=== PATIENT | female | born 1995 | race Caucasian/White ===

== ENCOUNTER → 2019-02-02 | Outpatient (CLI) | payer BC ==
--- NOTE | 2019-02-02 13:06 | REP ---
KUB ABDOMEN AND PELVIS: KUB film of abdomen and pelvis performed. Bowel gas pattern is normal. There is no obstruction. No abnormal calcifications are seen. The visualized osseous structures are unremarkable. IMPRESSION: Negative exam. Electronically Signed by Sudhakar Walls MD 02/02/2019 06:03 P
== END ==
LOC: M RAD 10:58
PROVIDERS: ATTEND Physician Assistant
DX: M54.5 Low back pain (principal)

== ENCOUNTER → 2019-02-02 | Outpatient (REF) | payer BC | LOC: M LAB REF 15:26 | PROVIDERS: ATTEND Physician Assistant | DX: R30.0 Dysuria (principal) ==

== ENCOUNTER → 2019-06-06 | Outpatient (REF) | payer BC ==
[2019-06-06 11:49] LABS: ALBUMIN 3.7 GM/DL (3.2-5.2); ALT/SGPT 16 U/L (12-78); BILIRUBIN,TOTAL 0.3 MG/DL (0.2-1.0); BLOOD UREA NITROGEN 10 MG/DL (7-18); CALCIUM LEVEL 9.1 MG/DL (8.5-10.1); CARBON DIOXIDE LEVEL 21 MEQ/L (21-32); CHLORIDE LEVEL 106 MEQ/L (98-107); CREATININE FOR GFR 0.72 MG/DL (0.55-1.30); FREE T4 1.09 NG/DL (0.76-1.46); GLOMERULAR FILTRATION RATE > 60.0 (>60); GLUCOSE, FASTING 78 MG/DL (70-100); POTASSIUM SERUM 4.2 MEQ/L (3.5-5.1); SODIUM LEVEL 139 MEQ/L (136-145); TOTAL PROTEIN 7.5 GM/DL (6.4-8.2)
== END ==
LOC: M SFHCPLAZ 08:56
PROVIDERS: ATTEND Physician Assistant
DX: Z00.00 Encounter for general adult medical examination without abnormal findings (principal)

== ENCOUNTER → 2020-04-20 | Outpatient (CLI) | payer SELFPAY | LOC: M LABSMTC 14:25 | PROVIDERS: ATTEND Pediatrics | DX: Z11.59 Encounter for screening for other viral diseases (principal) ==

== ENCOUNTER → 2021-07-14 | Outpatient (REF) | payer BC | LOC: M SFHCWAGY 13:08 | PROVIDERS: ATTEND Obstetrics & Gynecology | DX: Z01.419 Encounter for gynecological examination (general) (routine) without abnormal findings (principal); Z12.4 Encounter for screening for malignant neoplasm of cervix ==

== ENCOUNTER → 2021-09-02 | Outpatient (CLI) | payer BC ==
[2021-09-02 15:38] LABS: BASO % 0.4 % (0.0-1.0); EOS # 0.2 10^3/uL (0.0-0.5); EOS % 2.4 % (0.0-3.0); HEMATOCRIT 40.9 % (36.0-47.0); HEMOGLOBIN 13.4 g/dl (12.0-15.5); LYMPH # 2.1 10^3/uL (1.5-5.0); MEAN CORPUSCULAR HEMOGLOBIN 28.3 pg (27.0-33.0); MEAN CORPUSCULAR HGB CONC 32.8 g/dl (32.0-36.5); MEAN CORPUSCULAR VOLUME 86.5 fl (80.0-96.0); MONO # 0.4 10^3/uL (0.0-0.8); MONO % 6.1 % (2.0-8.0); NEUTROPHILS # 4.3 10^3/uL (1.5-8.5); NEUTROPHILS % 60.8 % (36.0-66.0); PLATELET COUNT, AUTOMATED 357 10^3/uL (150-450); RED BLOOD COUNT 4.73 10^6/uL (4.00-5.40); WHITE BLOOD COUNT 7.1 10^3/uL (4.0-10.0)
[2021-09-02 16:05] LABS: HEMOGLOBIN A1c 5.3 %
[2021-09-02 16:21] LABS: ALBUMIN 4.1 GM/DL (3.2-5.2); ALT/SGPT 29 U/L (12-78); BILIRUBIN,TOTAL 0.4 MG/DL (0.2-1.0); BLOOD UREA NITROGEN 14 MG/DL (7-18); CALCIUM LEVEL 10.2 MG/DL (8.5-10.1); CARBON DIOXIDE LEVEL 29 MEQ/L (21-32); CHLORIDE LEVEL 106 MEQ/L (98-107); CREATININE FOR GFR 0.72 MG/DL (0.55-1.30); FREE T4 0.77 NG/DL (0.76-1.46); GLOMERULAR FILTRATION RATE > 60.0 (>60); GLUCOSE, FASTING 84 MG/DL (70-100); POTASSIUM SERUM 4.5 MEQ/L (3.5-5.1); SODIUM LEVEL 141 MEQ/L (136-145); THYROID STIMULATING HORMONE 0.861 uIU/ML (0.358-3.740); TOTAL PROTEIN 7.6 GM/DL (6.4-8.2)
== END ==
LOC: M PLALAB 13:01
PROVIDERS: ATTEND Physician Assistant
DX: G43.109 Migraine with aura, not intractable, without status migrainosus (principal)

== ENCOUNTER → 2021-09-02 | Outpatient (CLI) | payer BC ==
[2021-09-02 16:19] LABS: HCG, SERUM QUANTITATIVE < 1.0 MIU/ML
[2021-09-02 16:24] LABS: LUTEINIZING HORMONE 11.7 mIU/mL
[2021-09-02 16:25] LABS: FOLLICLE STIMULATING HORMONE 7.6 mIU/mL
== END ==
LOC: M PLALAB 13:03
PROVIDERS: ATTEND Obstetrics & Gynecology
DX: N92.6 Irregular menstruation, unspecified (principal)

== ENCOUNTER → 2021-09-22 | Outpatient (REF) | payer BC | LOC: M SFHCPLAZ 16:51 | PROVIDERS: ATTEND Physician Assistant | DX: R05.9 Cough, unspecified (principal) ==

== ENCOUNTER → 2021-09-22 | Outpatient (CLI) | payer BC | LOC: M PLAIMG 16:11 | PROVIDERS: ATTEND Physician Assistant | DX: J20.9 Acute bronchitis, unspecified (principal) ==

== ENCOUNTER → 2022-01-27 | Outpatient (REF) | payer BC ==
[2022-01-27 13:09] LABS: BASO % 0.6 % (0.0-1.0); EOS # 0.2 10^3/uL (0.0-0.5); EOS % 3.2 % (0.0-3.0); HEMATOCRIT 43.3 % (36.0-47.0); HEMOGLOBIN 14.1 g/dl (12.0-15.5); LYMPH # 1.3 10^3/uL (1.5-5.0); MEAN CORPUSCULAR HEMOGLOBIN 29.4 pg (27.0-33.0); MEAN CORPUSCULAR HGB CONC 32.6 g/dl (32.0-36.5); MEAN CORPUSCULAR VOLUME 90.4 fl (80.0-96.0); MONO # 0.3 10^3/uL (0.0-0.8); MONO % 6.2 % (2.0-8.0); NEUTROPHILS # 3.5 10^3/uL (1.5-8.5); NEUTROPHILS % 64.8 % (36.0-66.0); PLATELET COUNT, AUTOMATED 323 10^3/uL (150-450); RED BLOOD COUNT 4.79 10^6/uL (4.00-5.40); WHITE BLOOD COUNT 5.3 10^3/uL (4.0-10.0)
[2022-01-27 13:50] LABS: ALT/SGPT 21 U/L (12-78); BILIRUBIN,TOTAL 0.5 MG/DL (0.2-1.0); BLOOD UREA NITROGEN 14 MG/DL (7-18); CALCIUM LEVEL 9.5 MG/DL (8.5-10.1); CARBON DIOXIDE LEVEL 29 MEQ/L (21-32); CHLORIDE LEVEL 103 MEQ/L (98-107); CREATININE FOR GFR 0.74 MG/DL (0.55-1.30); FERRITIN 30 NG/ML (8-252); GLOMERULAR FILTRATION RATE > 60.0 (>60); GLUCOSE, FASTING 83 MG/DL (70-100); IRON (FE) 71 UG/DL (50-170); PERCENT SATURATION 19.6 % (13.2-45.0); POTASSIUM SERUM 5.1 MEQ/L (3.5-5.1); SODIUM LEVEL 135 MEQ/L (136-145); TOTAL IRON BINDING CAPACITY 362 UG/DL (250-450); TOTAL PROTEIN 7.4 GM/DL (6.4-8.2)
[2022-01-27 14:21] LABS: VITAMIN B12 LEVEL > 2000 PG/ML (247-911)
[2022-01-28 10:08] LABS: FOLATE 4.4 ng/mL (>3.0)
== END ==
LOC: M SFHCADAM 08:26
PROVIDERS: ATTEND Physician Assistant
DX: R20.2 Paresthesia of skin (principal)

== ENCOUNTER → 2022-03-03 | Outpatient (REF) | payer BC ==
[2022-03-03 17:45] LABS: FREE T4 0.87 NG/DL (0.76-1.46); THYROID STIMULATING HORMONE 0.794 uIU/ML (0.358-3.740)
== END ==
LOC: M SFHCADAM 10:30
PROVIDERS: ATTEND Physician Assistant
DX: L65.9 Nonscarring hair loss, unspecified (principal)

== ENCOUNTER → 2023-01-04 | Outpatient (CLI) | payer BC ==
[2023-01-04 18:20] LABS: HEMATOCRIT 39.9 % (36.0-47.0); HEMOGLOBIN 13.3 g/dl (12.0-15.5); MEAN CORPUSCULAR HEMOGLOBIN 30.6 pg (27.0-33.0); MEAN CORPUSCULAR HGB CONC 33.3 g/dl (32.0-36.5); MEAN CORPUSCULAR VOLUME 91.9 fl (80.0-96.0); PLATELET COUNT, AUTOMATED 316 10^3/uL (150-450); RED BLOOD COUNT 4.34 10^6/uL (4.00-5.40); WHITE BLOOD COUNT 7.8 10^3/uL (4.0-10.0)
[2023-01-04 19:27] LABS: HIV 1&2 SCREEN NEGATIVE (NEGATIVE)
[2023-01-04 19:35] LABS: HEPATITIS C VIRUS ABY INDEX 0.12 INDEX (<0.8)
[2023-01-04 20:40] LABS: GC DNA AMPLIFICATION NEGATIVE (NEGATIVE)
== END ==
LOC: M PLALAB 16:17
PROVIDERS: ATTEND Obstetrics & Gynecology
DX: O36.80X0 Pregnancy with inconclusive fetal viability, not applicable or unspecified (principal); Z3A.00 Weeks of gestation of pregnancy not specified

== ENCOUNTER → 2023-01-05 | Outpatient (CLI) | payer BC | LOC: M PLALAB 09:54 | PROVIDERS: ATTEND Advanced Practice Midwife | DX: O20.9 Hemorrhage in early pregnancy, unspecified (principal); Z3A.00 Weeks of gestation of pregnancy not specified ==

== ENCOUNTER → 2023-01-08 | Outpatient (CLI) | payer BC | LOC: M PLALAB 16:07 | PROVIDERS: ATTEND Advanced Practice Midwife | DX: O20.9 Hemorrhage in early pregnancy, unspecified (principal); Z3A.00 Weeks of gestation of pregnancy not specified ==

== ENCOUNTER → 2023-02-02 | Outpatient (CLI) | payer BC | LOC: M PLALAB 10:34 | PROVIDERS: ATTEND Obstetrics & Gynecology | DX: Z34.80 Encounter for supervision of other normal pregnancy, unspecified trimester (principal) ==

== ENCOUNTER → 2023-04-18 | Outpatient (CLI) | payer BC | LOC: M WHC 10:19 | PROVIDERS: ATTEND Obstetrics & Gynecology | DX: Z34.80 Encounter for supervision of other normal pregnancy, unspecified trimester (principal) ==

== ENCOUNTER → 2023-06-01 | Outpatient (CLI) | payer BC | LOC: M WHC 07:46 | PROVIDERS: ATTEND Advanced Practice Midwife | DX: Z34.02 Encounter for supervision of normal first pregnancy, second trimester (principal) ==

== ENCOUNTER → 2023-06-15 | Outpatient (CLI) | payer BC ==
[2023-06-15 11:55] LABS: HEMATOCRIT 35.1 % (36.0-47.0); MEAN CORPUSCULAR HEMOGLOBIN 32.2 pg (27.0-33.0); MEAN CORPUSCULAR HGB CONC 34.2 g/dl (32.0-36.5); MEAN CORPUSCULAR VOLUME 94.1 fl (80.0-96.0); PLATELET COUNT, AUTOMATED 273 10^3/uL (150-450); RED BLOOD COUNT 3.73 10^6/uL (4.00-5.40); WHITE BLOOD COUNT 8.9 10^3/uL (4.0-10.0)
== END ==
LOC: M PLALAB 07:06
PROVIDERS: ATTEND Advanced Practice Midwife
DX: Z34.02 Encounter for supervision of normal first pregnancy, second trimester (principal)

== ENCOUNTER → 2023-07-24 | Outpatient (CLI) | payer BC ==
[2023-07-24 18:30] LABS: HEMOGLOBIN 11.9 g/dl (12.0-15.5); MEAN CORPUSCULAR HEMOGLOBIN 31.4 pg (27.0-33.0); MEAN CORPUSCULAR VOLUME 92.3 fl (80.0-96.0); PLATELET COUNT, AUTOMATED 298 10^3/uL (150-450); RED BLOOD COUNT 3.79 10^6/uL (4.00-5.40); WHITE BLOOD COUNT 9.5 10^3/uL (4.0-10.0)
== END ==
LOC: M PLALAB 16:28
PROVIDERS: ATTEND Advanced Practice Midwife
DX: L29.9 Pruritus, unspecified (principal); Z34.82 Encounter for supervision of other normal pregnancy, second trimester

== ENCOUNTER → 2023-08-01 | Outpatient (CLI) | payer BC ==
[2023-08-01 18:16] LABS: HEMATOCRIT 34.8 % (36.0-47.0); HEMOGLOBIN 11.9 g/dl (12.0-15.5); MEAN CORPUSCULAR HEMOGLOBIN 31.2 pg (27.0-33.0); MEAN CORPUSCULAR HGB CONC 34.2 g/dl (32.0-36.5); MEAN CORPUSCULAR VOLUME 91.3 fl (80.0-96.0); PLATELET COUNT, AUTOMATED 276 10^3/uL (150-450); RED BLOOD COUNT 3.81 10^6/uL (4.00-5.40); WHITE BLOOD COUNT 9.8 10^3/uL (4.0-10.0)
[2023-08-01 18:48] LABS: TOTAL PROTEIN,RANDOM URINE 16.7 MG/DL (0.0-14.0)
[2023-08-01 18:53] LABS: CREATININE,RANDOM URINE 74.6 MG/DL
[2023-08-01 18:58] LABS: URIC ACID 4.3 MG/DL (3.1-7.8)
[2023-08-01 19:00] LABS: LDH LACTATE DEHYDROGENASE 173 U/L (120-246)
[2023-08-01 19:01] LABS: ALT/SGPT < 9 U/L (7.0-40); AST/SGOT 8 U/L (<34); BILIRUBIN,TOTAL 0.4 MG/DL (0.3-1.2); GLOMERULAR FILTRATION RATE > 60.0 (>60)
== END ==
LOC: M PLALAB 15:56
PROVIDERS: ATTEND Obstetrics & Gynecology
DX: O16.9 Unspecified maternal hypertension, unspecified trimester (principal)

== ENCOUNTER 2023-08-04 21:23 | Observation (INO) | payer BC ==
[~2023-08-04] VITALS: Ht 154.9 cm; Wt 87.1 kg
[2023-08-04] MEDS ORDERED: HOME MED LIST COMPLETE! XX SCH (21:40)
[2023-08-04] MEDS ORDERED: PRENTAB9 PO (21:51)
[2023-08-04] MEDS ORDERED: ACET500P3 PO (21:53)
[2023-08-04] MEDS ORDERED: PREP1SUP PR (21:53)
[2023-08-04] MEDS ORDERED: UNIS25TA3 PO (21:53)
[2023-08-04] MEDS ORDERED: LEVOTAB10 PO (21:53)
[2023-08-04 22:04] VITALS: BP 134/84
[2023-08-04 23:03] LABS: HEMATOCRIT 34.6 % (36.0-47.0); HEMOGLOBIN 12.3 g/dl (12.0-15.5); MEAN CORPUSCULAR HEMOGLOBIN 31.9 pg (27.0-33.0); MEAN CORPUSCULAR HGB CONC 35.5 g/dl (32.0-36.5); MEAN CORPUSCULAR VOLUME 89.9 fl (80.0-96.0); PLATELET COUNT, AUTOMATED 307 10^3/uL (150-450); RED BLOOD COUNT 3.85 10^6/uL (4.00-5.40); WHITE BLOOD COUNT 12.5 10^3/uL (4.0-10.0)
[2023-08-04] MEDS: LR 1,000 ML IV ONE (23:23)
[2023-08-04] MEDS: ACETAMINOPHEN 500 MG TAB PO PRN (23:23)
[2023-08-05 01:10] VITALS: BP 131/86
[2023-08-05 02:00] VITALS: BP 116/62
[2023-08-05] MEDS: PERCOCET 5MG/325MG TAB PO PRN (02:16)
[2023-08-05] MEDS: LR 1,000 ML IV SCH (03:38)
[2023-08-05] MEDS: TAMSULOSIN 0.4 MG CAP PO SCH (03:39)
[2023-08-05 05:37] VITALS: BP 139/86
[2023-08-05 09:14] VITALS: BP 135/98
[2023-08-05] MEDS ORDERED: FLOM0.4C39 PO (09:24)
== END 2023-08-05 09:35 | disposition home or self-care (01) ==
LOC: M LDO 21:23 → M LDI 21:24 → UNDOADMOB 21:24 → M LDI 08-05 09:35 → UNDODISOB 08-05 09:35
PROVIDERS: ADMIT Obstetrics & Gynecology; ATTEND Obstetrics & Gynecology
DX: O26.833 Pregnancy related renal disease, third trimester (principal); N20.0 Calculus of kidney; O99.353 Diseases of the nervous system complicating pregnancy, third trimester; G43.909 Migraine, unspecified, not intractable, without status migrainosus; Z3A.35 35 weeks gestation of pregnancy; Z82.49 Family history of ischemic heart disease and other diseases of the circulatory system; Z82.0 Family history of epilepsy and other diseases of the nervous system; Z80.0 Family history of malignant neoplasm of digestive organs
CPT/HCPCS: 59025; 76775; 81001; 85027; 87086; 96360; 96361; G0463

== ENCOUNTER → 2023-08-07 | Outpatient (REF) | payer BC ==
[~2023-08-07] MED LIST: ACET500P3 PO; FLOM0.4C39 PO; LEVOTAB10 PO; PRENTAB9 PO; PREP1SUP PR; UNIS25TA3 PO
== END ==
LOC: M SFHCWAGY 17:38
PROVIDERS: ATTEND Obstetrics & Gynecology
DX: O13.3 Gestational [pregnancy-induced] hypertension without significant proteinuria, third trimester (principal)

== ENCOUNTER 2023-08-15 04:50 | Inpatient (IN) | payer BC ==
[2023-08-15] VITALS (10 sets, daily range): BP systolic 110–139; BP diastolic 60–92; TEMP 98.1; O2SAT 96–100
[~2023-08-15] VITALS: Ht 154.9 cm; Wt 87.5 kg
[2023-08-15] MEDS ORDERED: OXYTOCIN DRIP 30 UNITS in IV 1 EA IV PRN (05:45)
[2023-08-15] MEDS ORDERED: TRANEXAMIC ACID INJection 1,000 MG in NS 100 ML IV PRN (05:45)
[2023-08-15 06:07] LABS: HEMATOCRIT 32.3 % (36.0-47.0); HEMOGLOBIN 11.3 g/dl (12.0-15.5); MEAN CORPUSCULAR HEMOGLOBIN 31.5 pg (27.0-33.0); PLATELET COUNT, AUTOMATED 309 10^3/uL (150-450); RED BLOOD COUNT 3.59 10^6/uL (4.00-5.40); WHITE BLOOD COUNT 9.1 10^3/uL (4.0-10.0)
[2023-08-15] MEDS: BICITRA 30ML SOLN UDC PO ONE (06:21)
[2023-08-15] MEDS: LACTATED RINGER'S 1000 ML IV STA (06:21)
[2023-08-15] MEDS: ceFAZolin SOD 2 GM in IV 1 EA IV ONE (06:21)
[2023-08-15] MEDS: LR 1,000 ML IV SCH ×2 (06:22→08:05)
[2023-08-15 06:25] LABS: URIC ACID 4.3 MG/DL (3.1-7.8)
[2023-08-15 06:27] LABS: ALT/SGPT 10 U/L (7.0-40); AST/SGOT < 8 U/L (<34); BILIRUBIN,TOTAL 0.5 MG/DL (0.3-1.2); CREATININE FOR GFR 0.46 MG/DL (0.55-1.30); CREATININE,RANDOM URINE 119.5 MG/DL; GLOMERULAR FILTRATION RATE > 60.0 (>60); LDH LACTATE DEHYDROGENASE 165 U/L (120-246)
[2023-08-15] MEDS ORDERED: MORPHINE PRES-FREE INJ 10 MG/10 ML VIAL As Ordered ONE (06:47)
[2023-08-15] MEDS ORDERED: KETOROLAC 60MG 2ML VIAL As Ordered ONE (06:47)
[2023-08-15] MEDS ORDERED: ACETAMINOPHEN 1000MG 100ML IV BAG As Ordered ONE (06:47)
[2023-08-15] MEDS ORDERED: ONDANSETRON 4MG 2ML VIAL As Ordered ONE (06:47)
[2023-08-15] MEDS ORDERED: OXYTOCIN 30UNITS IN 0.9% NaCl 500ML IV BAG As Ordered ONE (06:47)
[2023-08-15] MEDS ORDERED: PHENYLephrine 500MCG 5ML (100MCG/ML) SYRINGE As Ordered ONE (07:31)
[2023-08-15] MEDS ORDERED: fentaNYL 100 MCG/2 ML INJECTION As Ordered ONE (07:39)
[2023-08-15] MEDS ORDERED: SIMETHICONE 80MG CHEW TAB PO PRN (08:05)
[2023-08-15] MEDS ORDERED: ONDANSETRON 4MG 2ML VIAL IV PRN (08:05)
[2023-08-15] MEDS ORDERED: PERCOCET 5MG/325MG TAB PO PRN ×2 (08:05)
[2023-08-15] MEDS ORDERED: CALCIUM CARBONATE 500 MG CHEW U/D PO PRN (08:05)
[2023-08-15] MEDS ORDERED: RHOGAM 300MCG (1500IU) INJ IM SCH (08:05)
[2023-08-15] MEDS ORDERED: MOM 30ML SUSPENSION UDC PO PRN (08:05)
[2023-08-15] MEDS: OXYTOCIN DRIP 30 UNITS in IV 1 EA IV SCH (08:19)
[2023-08-15] MEDS: FERROUS SULFATE 325MG TAB PO SCH (10:24)
[2023-08-15] MEDS: PRENATAL VITAMINS CHEWABLE TABLET PO SCH (10:25)
[2023-08-15] MEDS: DOCUSATE SODIUM 100MG CAPSULE PO SCH (10:25)
[2023-08-15] MEDS: KETOROLAC 30 MG/ML 1ML VIAL IV SCH (13:48)
[2023-08-15] MEDS: diphenhydrAMINE 50MG/ML VIAL IV PRN (20:09)
[2023-08-16 02:00] VITALS: BP 109/65; O2SAT 100
[2023-08-16 05:54] VITALS: BP 114/66; O2SAT 100
[2023-08-16 07:29] LABS: HEMATOCRIT 26.7 % (36.0-47.0); MEAN CORPUSCULAR HEMOGLOBIN 31.4 pg (27.0-33.0); MEAN CORPUSCULAR HGB CONC 34.1 g/dl (32.0-36.5); MEAN CORPUSCULAR VOLUME 92.1 fl (80.0-96.0); PLATELET COUNT, AUTOMATED 261 10^3/uL (150-450); WHITE BLOOD COUNT 9.5 10^3/uL (4.0-10.0)
[2023-08-16 07:30] LABS: HEMOGLOBIN 9.1 g/dl (12.0-15.5)
[2023-08-16 09:56] VITALS: BP 121/69; O2SAT 99
[2023-08-16] MEDS: IBUPROFEN 800 MG TAB PO SCH (11:33)
[2023-08-16 14:00] VITALS: BP 126/71; O2SAT 98
[2023-08-16 17:37] VITALS: BP 133/71; O2SAT 100
[2023-08-16 22:00] VITALS: BP 113/55; O2SAT 99
[2023-08-17 02:00] VITALS: BP 135/82; O2SAT 98
[2023-08-17 06:00] VITALS: BP 122/65; O2SAT 99
[2023-08-17] MEDS ORDERED: COLA100C5 PO (08:01)
[2023-08-17] MEDS ORDERED: IBUP80TA PO (08:01)
[2023-08-17] MEDS: MEASLES,MUMPS,RUBELLA VACCINE INJ (MMR-II) SC.IMMUN ONE (08:55)
== END 2023-08-17 13:00 | disposition home or self-care (01) | DRG 540 ==
LOC: M LDO 04:50 → M LDI 05:39 → M OBS 09:28
PROVIDERS: ADMIT Obstetrics & Gynecology; ATTEND Obstetrics & Gynecology
PROC: 10D00Z1 Extraction of Products of Conception, Low, Open Approach (ICD-10-PCS; principal; 2023-08-15 06:04)
DX: O32.1XX0 Maternal care for breech presentation, not applicable or unspecified (principal); Z37.0 Single live birth; Z3A.37 37 weeks gestation of pregnancy; O13.4 Gestational [pregnancy-induced] hypertension without significant proteinuria, complicating childbirth

== ENCOUNTER 2024-12-10 07:20 | Emergency (ER) | payer BC ==
[~2024-12-10] VITALS: Ht 157.5 cm; Wt 77.1 kg
[~2024-12-10 07:20] MED LIST changes: +COLA100C5 PO; -FLOM0.4C39 PO; +IBUP80TA PO; +TAMS-18 PO
[2024-12-10] MEDS: diphenhydrAMINE 50 MG/ML VIAL IV ONE (08:02)
[2024-12-10] MEDS: FAMOTIDINE IV BAG 20 MG in IV 1 EA IV ONE (08:02)
[2024-12-10] MEDS: NS 500 ML IV ONE (08:02)
[2024-12-10] MEDS: diphenhydrAMINE 50 MG/ML VIAL IV STA (10:11)
[2024-12-10] MEDS ORDERED: PRED50TA57 PO (11:34)
[2024-12-10] MEDS ORDERED: PEPC1TAB5 PO (11:35)
[2024-12-10] MEDS ORDERED: BENA25CA4 PO (11:36)
[2024-12-10 11:54] VITALS: BP 113/63; TEMP 99; O2SAT 97
== END 2024-12-10 11:50 | disposition home or self-care (01) ==
LOC: M ED 07:20
DX: L50.9 Urticaria, unspecified (principal); Z79.1 Long term (current) use of non-steroidal anti-inflammatories (NSAID); Z79.52 Long term (current) use of systemic steroids; Z79.899 Other long term (current) drug therapy; Z79.810 Long term (current) use of selective estrogen receptor modulators (SERMs)
CPT/HCPCS: 93041; 96365; 96366; 96375; 96376; 99285; J1200; J1308; J2919

== ENCOUNTER → 2024-12-18 | Outpatient (REF) | payer BC ==
[~2024-12-18] MED LIST changes: +BENA25CA4 PO; +PEPC1TAB5 PO; +PRED50TA57 PO
[2024-12-18 13:37] LABS: BASO # 0.0 10^3/uL (0.0-0.2); BASO % 0.3 % (0.0-1.0); EOS # 0.2 10^3/uL (0.0-0.5); EOS % 3.6 % (0.0-3.0); LYMPH # 1.7 10^3/uL (1.5-5.0); LYMPH % 29.0 % (24.0-44.0); MONO # 0.3 10^3/uL (0.0-0.8); MONO % 5.9 % (2.0-8.0); NEUTROPHILS # 3.5 10^3/uL (1.5-8.5); NEUTROPHILS % 61.0 % (36.0-66.0); PLATELET COUNT, AUTOMATED 296 10^3/uL (150-450)
[2024-12-18 13:44] LABS: IRON (FE) 60 UG/DL (50-170); PERCENT SATURATION 21.4 % (13.2-45.0)
[2024-12-18 13:45] LABS: ALT/SGPT 14 U/L (7.0-40); AST/SGOT 10 U/L (<34); CALCIUM LEVEL 9.7 MG/DL (8.5-10.1); CARBON DIOXIDE LEVEL 29 MMOL/L (20-31); CHLORIDE LEVEL 107 MMOL/L (98-107); CREATININE FOR GFR 0.75 MG/DL (0.55-1.30); GLOMERULAR FILTRATION RATE > 90.0 (>60); POTASSIUM SERUM 5.2 MMOL/L (3.5-5.1); SODIUM LEVEL 143 MMOL/L (136-145)
[2024-12-18 13:47] LABS: VITAMIN B12 LEVEL 645 PG/ML (211-911)
== END ==
LOC: M SFHCADAM 09:05
PROVIDERS: ATTEND Physician Assistant
DX: L50.1 Idiopathic urticaria (principal); R11.10 Vomiting, unspecified; Z86.2 Personal history of diseases of the blood and blood-forming organs and certain disorders involving the immune mechanism

== ENCOUNTER → 2025-01-08 | Outpatient (REF) | payer BC ==
[2025-01-10 11:57] LABS: HPV APTIMA Detected (Not Detected)
== END ==
LOC: M PLALAB 12:47
PROVIDERS: ATTEND Advanced Practice Midwife
DX: Z12.4 Encounter for screening for malignant neoplasm of cervix (principal)
CPT/HCPCS: 87624; G0123